=== PATIENT | male | born 1995 | race Two or more races ===

== ENCOUNTER 2019-09-04 21:25 | Emergency (ER) | payer SELFPAY ==
[~2019-09-04] VITALS: Ht 172.7 cm; Wt 83.9 kg
[2019-09-04 21:28] VITALS: BP 142/70
[2019-09-04] MEDS ORDERED: predniSONE 20 MG TABLET ONE (21:37)
[2019-09-04] MEDS ORDERED: IPRATROPIUM NEB FS 0.5 MG/2.5 ML AMPUL.NEB ONE ×3 (21:49→22:34)
[2019-09-04] MEDS ORDERED: ALBUTEROL FS 2.5 MG/3 ML VIAL.NEB ONE ×3 (21:49→22:34)
[2019-09-04] MEDS ORDERED: ALBUTEROL FS 2.5 MG/3 ML VIAL.NEB NEB ONE ×2 (22:00→22:30)
[2019-09-04] MEDS ORDERED: predniSONE 20 MG TABLET PO ONE (22:00)
[2019-09-04] MEDS ORDERED: IPRATROPIUM NEB FS 0.5 MG/2.5 ML AMPUL.NEB NEB ONE ×2 (22:00→22:30)
== END 2019-09-05 01:02 | disposition home or self-care (01) ==
LOC: ER 21:28
DX: R06.2 Wheezing (principal); R06.00 Dyspnea, unspecified
CPT/HCPCS: 71046; 93005; 94640 ×2; 99284; J7512